=== PATIENT | male | born 2000 | race Two or more races ===

== ENCOUNTER 2019-09-16 00:47 | Emergency (ER) | payer OTHER ==
[~2019-09-16] VITALS: Ht 162.6 cm; Wt 54.4 kg
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
[2019-09-16] MEDS ORDERED: ONDANSETRON HCL/PF 4 MG/2 ML VIAL ONE (00:53)
[2019-09-16] MEDS ORDERED: ONDANSETRON HCL/PF 4 MG/2 ML VIAL IV ONE (01:00)
[2019-09-16] MEDS ORDERED: IV NS 0.9% 1,000 ML BAG IV ONE (01:00)
--- NOTE | 2019-09-16 01:20 | NUR ---
PT STILL VOMITTING, ER MD AWARE. WILL MEDICATE PT PER MD ORDER
[2019-09-16] MEDS ORDERED: METOCLOPRAMIDE HCL 10 MG/2 ML VIAL ONE (01:24)
[2019-09-16] MEDS ORDERED: METOCLOPRAMIDE HCL 10 MG/2 ML VIAL IV ONE (01:30)
--- NOTE | 2019-09-16 01:50 | NUR ---
PT AWAKE, YELLING INCOHERENTLY. CONTANTLY ATTEMPTING TO REORIENT PATIENT TO SURROUNDINGS. PT STILL APPEARS INTOXICATED. PT CONSTANTLY ATTEMPTING TO GET OUT OF MED. AWARE, SITTER AT BEDSIDE
[2019-09-16] MEDS ORDERED: HALOPERIDOL LACTATE INJ 5 MG/ML VIAL ONE (01:56)
[2019-09-16] MEDS ORDERED: HALOPERIDOL LACTATE INJ 5 MG/ML VIAL IM ONE (02:00)
[2019-09-16 02:13] LABS: BASOPHILS % (AUTO) 0.2 % (0.0-2.0); EOSINOPHILS % (AUTO) 0.4 % (0.0-6.0); HEMATOCRIT 43 % (39-51); HEMOGLOBIN 13.8 g/dL (13.5-17.5); LYMPHOCYTES # (AUTO) 1.6 /CMM (0.8-4.8); LYMPHOCYTES % (AUTO) 13.4 % (20.0-44.0); MEAN CORPUSCULAR HGB CONC 32 g/dl (31.0-36.0); MEAN CORPUSCULAR VOLUME 92 fL (80-96); MONOCYTES # (AUTO) 0.6 /CMM (0.1-1.30); MONOCYTES % (AUTO) 5.4 % (2.0-12.0); NEUTROPHILS # (AUTO) 9.5 /CMM (1.8-8.9); NEUTROPHILS % (AUTO) 80.6 % (43.0-81.0); PLATELET COUNT (AUTO) 239 /CMM (150-450); RED BLOOD CELL COUNT(AUTO) 4.69 MIL/uL (4.5-6.0); WHITE BLOOD COUNT (AUTO) 11.7 K/uL (4.3-11.0)
--- NOTE | 2019-09-16 02:13 | NUR ---
URINE COLLECTED AND SENT TO LAB
[2019-09-16 02:17] LABS: CALCIUM, SERUM 8.1 mg/dL (8.5-10.1); CREATININE 1.1 mg/dL (0.6-1.3); POTASSIUM 3.6 mmol/L (3.5-5.1)
[2019-09-16] MEDS ORDERED: diphenhydrAMINE HCL 50 MG/ML VIAL ONE (02:19)
[2019-09-16 02:22] LABS: ALBUMIN 3.8 g/dL (3.4-5.0); BILIRUBIN,DIRECT 0.1 mg/dL (0.0-0.2); BILIRUBIN,TOTAL 0.3 mg/dL (0.2-1.0); SALICYLATE 0.8 mg/dL (2.8-20.0); TOTAL PROTEIN, SERUM 6.7 g/dL (6.4-8.2)
[2019-09-16 02:30] LABS: APPEARANCE,URINE CLEAR (CLEAR); BILIRUBIN,URINE NEGATIVE (NEGATIVE); BLOOD, URINE TRACE-INTA Ery/uL (NEGATIVE); COLOR,URINE YELLOW (YELLOW); KETONES,URINE NEGATIVE (NEGATIVE); LEUKOCYTE ESTERASE ,URINE NEGATIVE (NEGATIVE); NITRITE, URINE NEGATIVE (NEGATIVE); PROTEIN,URINE NEGATIVE (NEGATIVE); UGLUCOSE NEGATIVE (NEGATIVE); UROBILINOGEN,URINE 0.2 EU/dL (0.2)
[2019-09-16] MEDS ORDERED: diphenhydrAMINE HCL 50 MG/ML VIAL IM ONE (02:30)
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
[2019-09-16 02:37] LABS: BACTERIA,URINE Few /HPF (None Seen); RBC,URINE 0-2 /HPF (0-2); SQUAMOUS EPITHELIAL CELL,UR Moderate /HPF (None Seen); WBC,URINE 0-2 /HPF (0-3)
[2019-09-16] MEDS ORDERED: LORAZEPAM INJ 2 MG/ML VIAL ONE (03:08)
[2019-09-16] MEDS ORDERED: LORAZEPAM INJ 2 MG/ML VIAL IM ONE (03:30)
--- NOTE | 2019-09-16 04:11 | NUR ---
CALLED [facility] FOR REPORT
--- NOTE | 2019-09-16 06:10 | NUR ---
Patient is resting comfortably in bed with eyes closed. Easily aroused. VSS
--- NOTE | 2019-09-16 07:44 | NUR ---
Assumed care report given by Fatou Parker patient is homeless per report
--- NOTE | 2019-09-16 08:45 | NUR ---
Patient eyes close /asllep but arousable eyes open and back to sleep vitals done and filed continue to monitor
--- NOTE | 2019-09-16 09:51 | NUR ---
Patient awake alert to name no recollection what happened .Patient able to given his name and he is not homeless ,called registration for update his name ,Md made aware patient is aware denies any SI .
--- NOTE | 2019-09-16 10:06 | NUR ---
Patient is requesting for water he declined food tray @ this time
--- NOTE | 2019-09-16 10:37 | NUR ---
Patient awake alert noted able to ambulated non difficulties he stated he will call his friend to pick him up
[2019-09-16 10:42] VITALS: BP 123/78
--- NOTE | 2019-09-16 10:42 | NUR ---
Patient discharged to home in stable condition. Written and verbal after care instructions given. Patient verbalizes understanding of instruction.
== END 2019-09-16 10:43 | disposition home or self-care (01) ==
LOC: ER 00:50 → EDBD 00:50 → ER 10:43
DX: F19.10 Other psychoactive substance abuse, uncomplicated (principal); R11.10 Vomiting, unspecified; F10.129 Alcohol abuse with intoxication, unspecified; R45.1 Restlessness and agitation; R51 Headache; Y90.8 Blood alcohol level of 240 mg/100 ml or more
CPT/HCPCS: 36415; 70450; 80048; 80076; 80305; 80307; 80329; 81001; 82962; 85025; 96361; 96372 ×2; 96374; 96375; 99285; G0480; J1200; J1630; J2060; J2405; J2765; 81000-TC